=== PATIENT | female | born 1965 | race Caucasian/White ===

== ENCOUNTER 2017-12-16 08:39 | Day surgery (SDC) | payer OTHER ==
[~2017-12-16 08:39] MED LIST: EPHEDrine SULFATE 50 MG/5 ML SYG; LIDOCAINE 2% (SDV) 5 ML INJ; PROPOFOL 200 MG INJ
[2017-12-16 09:34] LABS: ADD MAN DIFF? NO
[2017-12-16 09:36] LABS: BASOPHILS % 0.3 % (0.0-2.0); EOSINOPHILS # 0.1 10^3/ul (0.0-0.5); EOSINOPHILS % 0.8 % (0.0-7.0); HEMATOCRIT 36.3 % (37.0-47.0); HEMOGLOBIN 11.6 g/dl (12.0-16.0); IMMATURE GRANS % (M) 0.3 %; LYMPHOCYTES # 1.8 10^3/ul (0.8-2.9); LYMPHOCYTES % 22.2 % (15.0-51.0); MEAN CORPUSCULAR HEMOGLOBIN 26.4 pg (29.0-33.0); MEAN CORPUSCULAR VOLUME 82.5 fl (82.0-101.0); MEAN PLATELET VOLUME 11.8 fl (7.4-10.4); MONOCYTE # 0.5 10^3/ul (0.3-0.9); MONOCYTES % 5.8 % (0.0-11.0); NEUTROPHIL # 5.6 10^3/ul (1.6-7.5); NEUTROPHILS % 70.6 % (39.0-77.0); PLATELET COUNT 233 10^3/UL (140-415); RED CELL DISTRIBUTION WIDTH 14.6 % (11.5-14.5)
[2017-12-16] MEDS ORDERED: PROPOFOL 20 ML (09:42)
[2017-12-16] MEDS ORDERED: LIDOCAINE 2% (SDV) 5 ML INJ (09:42)
[2017-12-16] MEDS ORDERED: CEFAZOLIN 1 GM INJ (09:42)
[2017-12-16] MEDS ORDERED: MIDAZOLAM 1 MG/ML 2 ML INJ (09:43)
[2017-12-16] MEDS ORDERED: PHENYLephrine (100 MCG/ML) 5ML SYG (09:43)
[2017-12-16] MEDS ORDERED: FENTAnyl 50 MCG/ML VIAL (09:44)
[2017-12-16] MEDS ORDERED: MEPERIDINE 25 MG INJ IV (10:00)
[2017-12-16] MEDS ORDERED: FENTAnyl 50 MCG/ML VIAL IV ×2 (10:00)
[2017-12-16] MEDS ORDERED: OXYCODONE/ACETAMINOPHEN (5/325) TAB PO ×2 (10:00)
[2017-12-16] MEDS ORDERED: LABETALOL HCL 20MG INJ IV (10:00)
[2017-12-16] MEDS ORDERED: ONDANSETRON 4 MG INJ IV (10:00)
[2017-12-16 10:09] LABS: INR 0.93; PROTIME 12.6 Sec (11.9-14.9)
[2017-12-16 10:10] LABS: PARTIAL THROMBOPLASTIN TIME 26.9 Sec (25.0-35.0)
[2017-12-16] MEDS ORDERED: DEXAMETHASONE 4 MG/ML 1 ML INJ (10:15)
[2017-12-16] MEDS ORDERED: ONDANSETRON 4 MG INJ (10:16)
[2017-12-16] MEDS ORDERED: HYDROCODONE/APAP (5/325) TAB PO ×2 (11:00)
[2017-12-16] MEDS ORDERED: KETOROLAC 30 MG INJ IV (11:00)
[2017-12-16] MEDS: ALPRAZOLAM 0.25 MG TAB PO (13:03)
[2017-12-16] MEDS ORDERED: LACTATED RINGER'S 1,000 ML IV* (14:00)
== END 2017-12-16 13:25 | disposition home or self-care (01) ==
LOC: SDS 08:39
DX: N92.1 Excessive and frequent menstruation with irregular cycle (principal); D25.9 Leiomyoma of uterus, unspecified; N85.00 Endometrial hyperplasia, unspecified
CPT/HCPCS: 58558; 85025; 85610; 85730; 88305; 93005

== ENCOUNTER → 2018-10-26 | Outpatient (CLI) | payer OTHER | END | disposition home or self-care (01) | LOC: U/S 09:33 | DX: E04.1 Nontoxic single thyroid nodule (principal) | CPT/HCPCS: 76536; 88104; 88305 ==

== ENCOUNTER 2018-12-08 09:29 | Inpatient (IN) | payer OTHER ==
[2018-12-08] MEDS: CEFAZOLIN 1 GM/50 ML (PMX) 50 ML IVPB (10:00)
[2018-12-08] MEDS: SOD CHLORIDE 0.9% 1,000 ML IV (10:00)
[2018-12-08] MEDS ORDERED: CEFAZOLIN 1 GM INJ (11:38)
[2018-12-08] MEDS ORDERED: MIDAZOLAM 1 MG/ML 2 ML INJ (11:38)
[2018-12-08] MEDS ORDERED: PROPOFOL 20 ML (11:38)
[2018-12-08] MEDS ORDERED: ONDANSETRON 4 MG INJ (11:38)
[2018-12-08] MEDS ORDERED: HYDROmorphONE 2 MG/ML SYG (11:38)
[2018-12-08] MEDS ORDERED: GLYCOPYRROLATE 0.4 MG INJ (11:38)
[2018-12-08] MEDS ORDERED: NEOSTIGMINE 3 MG/3 ML SYRINGE (11:38)
[2018-12-08] MEDS ORDERED: METOCLOPRAMIDE 10 MG INJ (11:38)
[2018-12-08] MEDS ORDERED: ROCURONIUM 50 MG INJ (11:38)
[2018-12-08] MEDS ORDERED: hydrALAzine 20 MG INJ IV (12:00)
[2018-12-08] MEDS ORDERED: FENTAnyl 50 MCG/ML VIAL IV ×2 (12:00)
[2018-12-08] MEDS ORDERED: LABETALOL HCL 20MG INJ IV (12:00)
[2018-12-08] MEDS ORDERED: HYDROmorphONE 1 MG/5 ML IV SYRINGE IV ×3 (12:00)
[2018-12-08] MEDS ORDERED: ONDANSETRON 4 MG INJ IV (12:00)
[2018-12-08] MEDS ORDERED: DIPHENHYDRAMINE 50 MG INJ IV (12:00)
[2018-12-08] MEDS ORDERED: MEPERIDINE 25 MG INJ IV (12:00)
[2018-12-08] MEDS: BUPIVACAINE 0.25% (MPF) 30 ML INJ (12:31)
[2018-12-08] MEDS ORDERED: EPHEDrine 25 MG/5 ML SYG (13:07)
[2018-12-08] MEDS ORDERED: morphine 2 MG INJ IV (13:30)
[2018-12-08] MEDS ORDERED: CEFAZOLIN 2 GM/50 ML (PMX) 50 ML IVPB (13:30)
[2018-12-08] MEDS: FENTAnyl 50 MCG/ML VIAL IV (13:58)
[2018-12-08 14:22] LABS: ADD MAN DIFF? NO; BASOPHILS % 0.3 % (0.0-2.0); EOSINOPHILS % 0.3 % (0.0-7.0); HEMATOCRIT 35.5 % (37.0-47.0); HEMOGLOBIN 10.9 g/dl (12.0-16.0); LYMPHOCYTES # 1.8 10^3/ul (0.8-2.9); LYMPHOCYTES % 26.1 % (15.0-51.0); MEAN CORPUSCULAR HEMOGLOBIN 27.3 pg (29.0-33.0); MEAN CORPUSCULAR HGB CONC 30.7 g/dl (32.0-37.0); MEAN CORPUSCULAR VOLUME 88.8 fl (82.0-101.0); MEAN PLATELET VOLUME 10.7 fl (7.4-10.4); MONOCYTE # 0.5 10^3/ul (0.3-0.9); MONOCYTES % 6.8 % (0.0-11.0); NEUTROPHIL # 4.6 10^3/ul (1.6-7.5); NEUTROPHILS % 65.9 % (39.0-77.0); PLATELET COUNT 155 10^3/UL (140-415); RED CELL DISTRIBUTION WIDTH 14.9 % (11.5-14.5)
[2018-12-08 14:22] LABS: WHITE BLOOD COUNT 6.9 10^3/ul (4.8-10.8)
[2018-12-08] MEDS: HYDROCODONE/APAP (5/325) TAB PO (14:26)
[2018-12-08 14:41] LABS: ALANINE AMINOTRANSFERASE 37 IU/L (13-69); ALBUMIN 3.8 g/dl (3.3-4.9); ALKALINE PHOSPHATASE 67 IU/L (42-121); ANION GAP 8 (5-13); ASPARTATE AMINO TRANSFERASE 22 IU/L (15-46); BILIRUBIN,INDIRECT 0.3 mg/dl (0-1.1); BILIRUBIN,TOTAL 0.3 mg/dl (0.2-1.3); BLOOD UREA NITROGEN 11 mg/dl (7-20); CALCIUM 8.9 mg/dl (8.4-10.2); CARBON DIOXIDE 26 mmol/L (21-31); CHLORIDE 109 mmol/L (97-110); CREATININE 0.63 mg/dl (0.44-1.00); Estimated GFR > 60 mL/min (>60); GLUCOSE 118 mg/dl (70-220); POTASSIUM 3.9 mmol/L (3.5-5.1); SODIUM 143 mmol/L (135-144); TOTAL PROTEIN 6.5 g/dl (6.1-8.1)
[2018-12-08] MEDS: LACTATED RINGER'S 1,000 ML IV (14:49)
[2018-12-08] MEDS: CEFAZOLIN 2 GM/50 ML (PMX) 50 ML IVPB (17:45)
[2018-12-09] MEDS: LACTATED RINGER'S 1,000 ML IV ×2 (01:47→09:02)
[2018-12-09] MEDS: CEFAZOLIN 2 GM/50 ML (PMX) 50 ML IVPB ×2 (01:51→10:32)
[2018-12-09 05:10] LABS: ADD MAN DIFF? NO
[2018-12-09 05:17] LABS: EOSINOPHILS # 0.1 10^3/ul (0.0-0.5); EOSINOPHILS % 1.1 % (0.0-7.0); HEMATOCRIT 34.6 % (37.0-47.0); HEMOGLOBIN 10.6 g/dl (12.0-16.0); LYMPHOCYTES # 1.7 10^3/ul (0.8-2.9); LYMPHOCYTES % 30.8 % (15.0-51.0); MEAN CORPUSCULAR HEMOGLOBIN 27.1 pg (29.0-33.0); MEAN CORPUSCULAR HGB CONC 30.6 g/dl (32.0-37.0); MEAN CORPUSCULAR VOLUME 88.5 fl (82.0-101.0); MONOCYTE # 0.5 10^3/ul (0.3-0.9); MONOCYTES % 9.7 % (0.0-11.0); NEUTROPHIL # 3.2 10^3/ul (1.6-7.5); PLATELET COUNT 161 10^3/UL (140-415); RED BLOOD COUNT 3.91 10^6/ul (4.20-5.40); RED CELL DISTRIBUTION WIDTH 15.3 % (11.5-14.5)
[2018-12-09 05:17] LABS: WHITE BLOOD COUNT 5.6 10^3/ul (4.8-10.8)
[2018-12-09 06:09] LABS: ALANINE AMINOTRANSFERASE 27 IU/L (13-69); ALBUMIN 3.7 g/dl (3.3-4.9); ALBUMIN/GLOBULIN RATIO 1.19; ALKALINE PHOSPHATASE 59 IU/L (42-121); ANION GAP 8 (5-13); ASPARTATE AMINO TRANSFERASE 23 IU/L (15-46); BILIRUBIN,INDIRECT 0.4 mg/dl (0-1.1); BILIRUBIN,TOTAL 0.4 mg/dl (0.2-1.3); BLOOD UREA NITROGEN 6 mg/dl (7-20); CALCIUM 8.6 mg/dl (8.4-10.2); CARBON DIOXIDE 31 mmol/L (21-31); CHLORIDE 104 mmol/L (97-110); CREATININE 0.62 mg/dl (0.44-1.00); Estimated GFR > 60 mL/min (>60); GLUCOSE 114 mg/dl (70-220); SODIUM 143 mmol/L (135-144); TOTAL PROTEIN 6.8 g/dl (6.1-8.1)
[2018-12-09] MEDS: HYDROCODONE/APAP (5/325) TAB PO (08:53)
[2018-12-09 15:48] LABS: CALCIUM 9.1 mg/dl (8.4-10.2)
== END 2018-12-09 16:50 | disposition home or self-care (01) | DRG 624 ==
LOC: SDS 09:29 → REC 13:02 → MS1 14:43
PROC: 0GTK0ZZ Resection of Thyroid Gland, Open Approach (ICD-10-PCS; principal; 2018-12-08 11:47)
PROC: 0HX4XZZ Transfer Neck Skin, External Approach (ICD-10-PCS; 2018-12-08 11:47)
DX: C73 Malignant neoplasm of thyroid gland (principal); Z85.42 Personal history of malignant neoplasm of other parts of uterus; E78.5 Hyperlipidemia, unspecified
CPT/HCPCS: 80053; 82310; 85025; 88307